=== PATIENT | female | born 1975 | race American Indian/Alaskan Native ===

== ENCOUNTER 2017-10-22 13:07 | Emergency (ER) | payer MEDICAID, OTHER ==
[2017-10-22 13:22] VITALS: BP 135/90
[2017-10-22] MEDS ORDERED: TESSALON PERLES PO ONE (16:25)
--- NOTE | 2017-10-22 16:26 | Emergency Department Report ---
Chief Complaint: Upper Respiratory Infection Stated Complaint: COUGHING, SNEEZING, RUNNING NOSE Time Seen by Provider: 10/22/17 16:23 - HPI History of Present Illness: The patient is a 42-year-old female presents from a recent coughs reports cough for the past one week, associated with intermittent nasal congestion and stuffiness. The patient denies fever, headache, neck pain, ear pain, tinnitus, chest pain, hemoptysis, dyspnea, abdominal pain, confusion or altered mental status. - Exam Vital Signs: Vital Signs 10/22/17 13:20 Temperature 97.6 F Pulse Rate 82 Respiratory 18 Rate Blood Pressure 135/90 O2 Sat by Pulse 100 Oximetry MSE screening note: Focused history and physical exam performed. Due to findings the following was ordered: ED Disposition for MSE Condition: Stable
--- NOTE | 2017-10-22 17:15 | XRay Report ---
FINAL REPORT PROCEDURE: XR CHEST ROUTINE 2V TECHNIQUE: PA and lateral chest radiographs were obtained. CPT 64242 HISTORY: Cough. COMPARISON: No prior studies are available for comparison. FINDINGS: Heart: Mild cardiomegaly. Mediastinum/Vessels: Normal. Lungs/Pleural space: Normal. Bony thorax: No acute osseous abnormality. Other: IMPRESSION: Mild cardiomegaly. No radiographic evidence of acute cardiopulmonary disease..
--- NOTE | 2017-10-22 17:29 | Emergency Department Report ---
Minor Respiratory - HPI Chief Complaint: Upper Respiratory Infection Stated Complaint: COUGHING, SNEEZING, RUNNING NOSE Time Seen by Provider: 10/22/17 16:23 Duration: 3 Days Minor Respiratory: Yes Rhinorrhea (congestion), Yes Able to Tolerate Fluids, Yes Cough (dry cough), Yes Sick Contacts, No Sore Throat, No Ear Pain, No Hemoptysis, No Chest Pain, No Shortness of Breath, No Fever Other History: The patient is a 42-year-old female presents from a recent coughs reports cough for the past one week, associated with intermittent nasal congestion and stuffiness. The patient denies fever, headache, neck pain, ear pain, tinnitus, chest pain, hemoptysis, dyspnea, abdominal pain, confusion or altered mental status. Pain 0-10 ED Review of Systems ROS: Stated complaint: COUGHING, SNEEZING, RUNNING NOSE Other details as noted in HPI Comment: All other systems reviewed and negative Constitutional: no symptoms reported Eyes: denies: eye pain, eye discharge ENT: congestion. denies: ear pain, throat pain Respiratory: cough. denies: orthopnea, shortness of breath, SOB with exertion, SOB at rest, stridor, wheezing Cardiovascular: denies: chest pain, palpitations, dyspnea on exertion, edema, syncope, paroxysmal nocturnal dyspnea Gastrointestinal: denies: abdominal pain, nausea, vomiting Genitourinary: denies: dysuria, hematuria Musculoskeletal: denies: back pain, arthralgia, myalgia Skin: denies: rash Neurological: denies: headache ED Past Medical Hx - Past Medical History Previous Medical History?: No - Surgical History Past Surgical History?: No - Family History Family history: hypertension - Social History Smoking Status: Never Smoker Substance Use Type: None - Medications Home Medications: Home Medications Medication Instructions Recorded Confirmed Last Taken Type Benzonatate [Tessalon Perles] 100 mg PO Q8HR PRN #12 capsule 10/22/17 Unknown Rx Cetirizine HCl [ZyrTEC] 10 mg PO QAM 14 Days #14 capsule 10/22/17 Unknown Rx Fluticasone [Flonase] 1 spray NS QDAY 14 Days #1 bottle 10/22/17 Unknown Rx Minor Respiratory Exam - Exam General: Vital signs noted. No distress. Alert and acting appropriately. This is a 42-year-old female well-nourished well-developed in no acute distress. HEENT: Yes Moist Mucous Membranes (uvula midline and oral airway patent), Yes Rhinorrhea (congested), No Pharyngeal Erythema, No Pharyngeal Exudates, No Conjuctival Injection, No Frontal Tenderness, No Maxillary Tenderness Ear: Neither TM Bulge, Neither TM Erythema (bilateral TM congested), Neither EAC Pain, Neither EAC Discharge Neck: Yes Supple (full range of motion), No Adenopathy Lungs: Yes Good Air Exchange, Yes Cough, No Wheezes, No Ronchi, No Stridor, No Labored Respirations, No Retractions, No Use of Accessory Muscles, No Other Abnormal Lung Sounds Heart: Yes Regular (S1, S2.), No Murmur Abdomen: No Tenderness, No Peritoneal Signs, No Normal Bowel Sounds Skin: No Rash, No Edema Neurologic: Alert and oriented, no deficits. Normal exam Musculoskeletal: Unremarkable. Normal exam ED Course Vital Signs 10/22/17 13:20 Temperature 97.6 F Pulse Rate 82 Respiratory 18 Rate Blood Pressure 135/90 O2 Sat by Pulse 100 Oximetry - Reevaluation(s) Reevaluation #1: 10/22/17 18:44 Before meals given Tessalon Perles 100 mg by mouth in emergency room. Chest x- ray negative findings except for mild cardiomegaly ED Medical Decision Making - Radiology Data Chest x-ray with mild cardiomegaly without any acute cardiopulmonary findings - Medical Decision Making ED course: Patient here reports upper respiratory infection and found to have common cold. Chest x-ray negative except for mild cardiomegaly. She was given Tessalon Perle and emergency room 100 mg by mouth. Patient and given information on chest x-ray and diagnosis and voice understanding discharged home with prescription for Zyrtec, Flonase and Tessalon and follow up with primary care physician at the outside Medical Center in 2-3 days. Critical care attestation.: If time is entered above; I have spent that time in minutes in the direct care of this critically ill patient, excluding procedure time. ED Disposition Clinical Impression: Upper respiratory infection with cough and congestion Disposition: -01 TO HOME OR SELFCARE Is pt being admited?: No Does the pt Need Aspirin: No Condition: Stable Instructions: Cold Symptoms (ED), Acute Cough (ED) Additional Instructions: Please take cough medicine as prescribed Zyrtec and Flonase is for congestion Increase fluid intake Follow-up with outside Medical Center as directed Prescriptions: Benzonatate [Tessalon Perles] 100 mg PO Q8HR PRN #12 capsule PRN Reason: Cough Cetirizine HCl [ZyrTEC] 10 mg PO QAM 14 Days #14 capsule Fluticasone [Flonase] 1 spray NS QDAY 14 Days #1 bottle Referrals: PRIMARY CARE, [Primary Care Provider] - 2-3 Days [facility] [Outside] - 2-3 Days Forms: Work/School Release Form(ED)
== END 2017-10-22 19:16 | disposition home or self-care (01) ==
LOC: ED 13:07
DX: J06.9 Acute upper respiratory infection, unspecified (principal)
CPT/HCPCS: 71046